=== PATIENT | male | born 1965 | race Hispanic/Latino ===

== ENCOUNTER 2023-11-28 07:36 | Inpatient (IN) | payer BC, SELFPAY ==
[2023-11-28] VITALS (55 sets, daily range): BP systolic 133–179; BP diastolic 67–99; PULSE 57–81; RESP 12–20; TEMP 36.3–36.8; O2SAT 95–100
--- NOTE | ~2023-11-28 | XR_ITS ---
EXAMINATION: XR chest 2V 11/28/2023 08:26 INDICATION: Chest pain PROCEDURE: PA view chest COMPARISON: No prior studies for comparison. FINDINGS: The lungs are clear. The cardiomediastinal silhouette is within normal limits. There are no pleural effusions. There is no pneumothorax suspected. IMPRESSION: 1: NO ACUTE CARDIOPULMONARY DISEASE. Reviewed, dictated and finalized at location B.
--- NOTE | ~2023-11-28 | CT_ITS ---
EXAMINATION: CTA chest abdomen DATE: 11/28/2023 09:29 INDICATION: Chest pain radiating to the back. TECHNIQUE: Computed tomographic angiography (CTA) of the chest and abdomen was performed without and with 100 mL Omnipaque-350 intravenous contrast. Volume-rendered 3D-reconstructions of the aorta and l arge arteries were constructed by the technologist on a separate workstation. Automated exposure cont rol and iterative reconstruction technique were employed. The dose-length product was 513.12 mGy-cm. COMPARISON: None FINDINGS: Chest: Mild dependent atelectasis in both lungs. No pneumonia, pulmonary edema, pleural effusion or pneumoth orax. Heart size is normal. Mild scattered atherosclerotic coronary artery calcification. No pericard ial effusion. Thoracic aorta is normal in caliber with no dissection. No pathologically enlarged thor acic lymphadenopathy. Mild thoracic spondylosis. Abdomen: Nodular liver surface consistent with cirrhosis. Gallbladder, spleen, pancreas and bilateral adrenal glands are normal. Bilateral renal cysts the larger on the right measuring 2.5 cm. There are few dive rticula along the visualized descending colon without adjacent comparison to suggest diverticulitis. No bowel obstruction. There is small amount of scattered nonhemodynamically significant calcified ath erosclerosis of the normal caliber abdominal aorta and many of the other arteries. No pathologically enlarged abdominal lymphadenopathy. Chronic L1 compression fracture with mild right anterior vertebra l body height loss. IMPRESSION: 1. Normal caliber aorta with no dissection. No acute cardiopulmonary disease or acute intra-abdominal process. Reviewed, dictated and finalized at location A.
--- NOTE | 2023-11-28 07:40 | ED.CHESTPAIN ---
HPI - Chest Pain General Chief Complaint: Chest Pain Stated Complaint: stemi Time Seen by Provider: 11/28/23 07:40 Source: patient, family and EMS Mode of arrival: EMS Limitations: language barrier (Surinamese as second language but good comprehension of and ability to speak Surinamese) History of Present Illness HPI narrative: Patient presents as a STEMI activation from the field based on 12-lead findings for EMS. They administerd 324 aspirin. Patient started having acute chest pain this morning approximately 30 minutes prior to calling EMS. This has never happened before. Lorenzana not follow with a cardioogist. Pain is in the center of his chest and rates to back. He feels subjectively like his whole body has been swollen lately. States he recenty had the flu yesterday with a cough and runny nose. Risk factors: HTN - Yes (didn't take meds this morning, unclear if compliant at baseline) HLD - Yes Cardiac Hx - No Family history - Yes, father DM - No but prediabetes Non smoker Related Data Home Medications Medication Instructions Recorded Confirmed losartan 50 mg tablet 50 mg PO DAILY 11/28/23 11/28/23 Allergies Allergy/AdvReac Type Severity Reaction Status Date / Time No Known Allergies Allergy Verified 11/28/23 07:40 [facility] Past Medical History Medical History HLD (hyperlipidemia) Hypertension Family History Family History Father Acute myocardial infarction <65yo Social History Social History (Updated 11/28/23 @ 23:15 by Deirde Arredondo MD) Social History: Surinamese as second language Smoking status: Never smoker Alcohol intake: former Substance use: never Substance use type: does not use Do You Feel Safe in your Home?: Yes Lack of Transportation: No Lack of Food: Never True Current Housing: I Have Housing Concerned About Future Housing: No Difficulty Paying Gas/Electric Bills: No Difficulty Paying for Meds: No Currently Unemployed: No Education: High School Diploma/GED Difficulty w/ Childcare or Family Care: No Spiritual care concerns: No Exam Narrative: GENERAL: Well-appearing, well-nourished, and in no acute distress. Appears younger than stated age HEAD: Normocephalic, atraumatic. EYES: Non injected, non icteric ENT: Nares clear, no rhinorrhea or epistaxis. NECK: Supple. CHEST: Speaking in full sentences. No respiratory distress. Lungs clear to auscultation bilaterally. HEART: Regular rate and rhythm. No pulse deficit in radials bilaterally. ABDOMEN: Soft, nondistended. EXTREMITIES: Normal range of motion. No lower extremity edema. SKIN: Warm, dry, no rash. NEURO: No focal deficits. Alert and oriented x3. PSYCH: Normal mood and affect. Course Vital Signs Vital signs: Vital Signs Temperature 97.3 F L 11/28/23 07:33 Pulse Rate 66 11/28/23 07:33 Respiratory Rate 19 11/28/23 07:33 Blood Pressure 153/93 H 11/28/23 07:33 Pulse Oximetry 100 11/28/23 07:33 Oxygen Delivery Room Air 11/28/23 07:33 Temperature 98.3 F 11/28/23 20:00 Pulse Rate 72 11/28/23 22:00 Respiratory Rate 18 11/28/23 21:30 Blood Pressure 156/87 H 11/28/23 21:00 Pulse Oximetry 95 11/28/23 21:30 Oxygen Delivery Room Air 11/28/23 21:30 MDM - Chest Pain MDM Narrative Medical decision making narrative: 58 yo male presents with acute onset chest pain. EKG from EMS did show some questionable elevations in inferior leads 2, 3, and AVF as well as possible depressions in V2 through V4 thus they activated STEMI call from the field. EKG obtained immediately while in the emergency department is not suspicious for STEMI and is otherwise relatively benign especially compared to EKG from the field. Discussed with on-call ventilation worker Dr. Chaves who concurs. STEMI activation is canceled. Will continue to proceed with wo
--- NOTE | 2023-11-28 07:42 | ECG_ITS ---
Test Date: 2023-11-28 07:37:09 Measurements Intervals [place] Rate: 69 P: 40 WI: 180 QRS: 48 QRSD: 87 T: 64 QT: 395 QTc: 423 Interpretive Statements SINUS RHYTHM WITH OCCASIONAL VENTRICULAR PREMATURE COMPLEXES No previous ECG available for comparison Electronically Signed On 11-28-2023 13:41:27 CDT by Fabien Chaves M.D.
[2023-11-28 07:55] LABS: Basophils Absolute Auto 0.1 K/mm3 (0.0-0.1); Basophils Percent Auto 0.9 % (0.2-1.2); Eosinophils Absolute Auto 0.4 K/mm3 (0-0.3); Eosinophils Percent Auto 5.2 % (0-4.4); Hematocrit 45.7 % (42.0-52.0); Hemoglobin 15.7 g/dL (14.0-18.0); Immature Granulocyte Absolute 0.01 K/mm3 (0.00-0.031); Immature Granulocyte Percent A 0.1 % (0-0.5); Lymphocytes Absolute Auto 3.49 K/mm3 (0.9-3.2); Lymphocytes Percent Auto 42.5 % (18.3-44.2); Mean Corpuscular HGB Conc 34.4 g/dl (32-36); Mean Corpuscular Hemoglobin 30.8 pg (26-34); Mean Corpuscular Volume 89.6 fl (80-100); Mean Platelet Volume 10.8 fl (7.4-10.4); Neutrophils Absolute Auto 3.2 K/mm3 (1.3-6.7); Neutrophils Percent Auto 39.3 % (45.5-73.1); Platelet Count Result 226 k/mm3 (150-375); Red Cell Distribution Width 13.6 % (11.5-14.5); White Blood Count 8.2 K/mm3 (4.5-10.0)
[2023-11-28] MEDS: MORPHINE SULFATE (*CRX) 4 MG/ML INJ IV PUSH (08:01)
[2023-11-28] MEDS: ONDANSETRON INJ 4 MG/2 ML VIAL IV PUSH (08:01)
[2023-11-28 08:22] LABS: Alanine Aminotransferase 38 U/L (6-50); Albumin Level 4.5 g/dL (3.5-5.1); Alkaline Phosphatase 62 U/L (38-126); Anion Gap 11 mmol/L (4-12); Aspartate Amino Transferase 35 U/L (17-59); Bilirubin,Total 0.7 mg/dL (0.2-1.3); Blood Urea Nitrogen 22 mg/dL (9-20); Calcium 9.9 mg/dL (8.4-10.2); Carbon Dioxide 20 mmol/L (22-30); Chloride 107 mmol/L (98-107); Estimated CRCL calculation 69 ml/min; Estimated Glomerular Filt Rate > 60; Glucose 137 mg/dL (65-110); Lipase 138 U/L (23-300); Potassium 3.8 mmol/L (3.4-5.0); Sodium 138 mmol/L (137-145)
[2023-11-28 08:27] LABS: INR 1.1; Prothrombin Time 14.2 Seconds (11.1-14.7)
[2023-11-28 08:28] LABS: Influenza A QL RT-PCR Negative (Negative); Influenza B QL RT-PCR Negative (Negative); RSV RNA, RT-PCR Negative (Negative); SARS-CoV-2 RNA PCR Negative (Negative)
[2023-11-28 08:28] LABS: Partial Thromboplastin Time 23.8 Seconds (22.3-36.8)
[2023-11-28 08:33] LABS: Troponin I < 0.012 ng/mL (0.000-0.034)
[2023-11-28 08:35] LABS: D Dimer 0.44 ug/mL (<0.48)
--- NOTE | 2023-11-28 10:40 | ECG_ITS ---
Test Date: 2023-11-28 11:05:49 Measurements Intervals [place] Rate: 60 P: 40 MT: 188 QRS: 27 QRSD: 84 T: 51 QT: 394 QTc: 395 Interpretive Statements SINUS RHYTHM Compared to ECG 11/28/2023 07:37:09 NO SIGNIFICANT CHANGES Electronically Signed On 11-28-2023 13:44:59 CDT by Fabien Chaves M.D.
[2023-11-28 11:29] LABS: Troponin I 0.393 ng/mL (0.000-0.034)
[2023-11-28 12:14] LABS: Cholesterol 233 mg/dL (0-200); HDL Direct 33 mg/dL; Triglycerides 150 mg/dL (<150)
[2023-11-28] MEDS: HEPARIN SODIUM 5,000 UNITS/ML VIAL 4000 UNITS IV PUSH (12:17)
[2023-11-28 12:18] LABS: Hemoglobin A1C 5.7 % (<5.7)
[2023-11-28] MEDS: HEPARIN SOD/D5W 100 UNITS/ML 25,000 UNITS/250 ML BAG 9 UNITS IV CONT (12:23)
[2023-11-28 12:25] LABS: LDL Cholesterol Direct 151 mg/dL
--- NOTE | 2023-11-28 12:31 | PM.CNCAR ---
Assessment and Plan Assessment and plan (1) Non-ST elevation MA (NSTEMI): Code(s): I21.4 - Non-ST elevation (NSTEMI) myocardial infarction Status: Acute Assessment and Plan: Recommend cardiac catheterization. Discussed procedure with the patient, including indication for the procedure, procedure details, risks vs benefits, alternative management options. Patient agreeable to cath. Will plan for cardiac catheterization later today. Further recommendations and plan pending results of cardiac catheterization. Continue Heparin drip in the meantime. Start ASA 81mg once daily, high intensity statin. Transthoracic echocardiogram ordered. (2) Hypertension: Code(s): I10 - Essential (primary) hypertension Status: Acute Assessment and Plan: Blood pressure elevated, as high as 179/88mmHg upon presentation. Will need to reconcile home medications and adjust antihypertensive regimen as appropriately. (3) Hypercholesterolemia: Code(s): E78.00 - Pure hypercholesterolemia, unspecified Status: Acute Assessment and Plan: LDL is 151. Start high intensity statin. (4) Diabetes mellitus: Code(s): E11.9 - Type 2 diabetes mellitus without complications Status: Acute Assessment and Plan: Hgb A1c is 5.7. Management as per primary team. (5) Cirrhosis: Code(s): K74.60 - Unspecified cirrhosis of liver Status: Acute Assessment and Plan: Management as per primary team. History of Present Illness History of Present Illness Consult date/time: 11/28/23 12:31 Requesting physician: Deidre Arredondo MD Consult reason: chest pain Reason For Visit: nstemi with pos troponin #2 and heart score 4 Narrative: This is a 58 year old male with cirrhosis, hypertension, hyperlipidemia, diabetes mellitus who had sudden onset of left sided chest pain this morning around 7AM. No prior cardiac history or episodes of chest pain. Patient reports that he had flu-like symptoms yesterday. EKG by EMS showed possible early ST elevations in the inferior leads with ST depressions in V1-V4. STEMI was activated by EMS. EKG upon immediate arrival to the ED showed normal sinus rhythm without ST elevations or ischemic changes. STEMI alert canceled. He was given Morphine in the ED, which resolved his chest pain, and he remains chest pain free since then. Initial troponin negative. Second troponin however was positive at 0.393. Repeat EKG with sinus rhythm, normal ECG without any ischemic changes. Chest and abdomen CTA shows normal aorta with no evidence of dissection. No other acute findings. Review of Systems Review of Systems: All systems reviewed & are unremarkable except as noted in HPI and below (HPI) Meds Home Medications and Allergies Allergies Allergy/AdvReac Type Severity Reaction Status Date / Time No Known Allergies Allergy Verified 11/28/23 07:40 Vital Signs Vital Signs - 24 hr 11/28/23 07:33 11/28/23 07:41 11/28/23 08:09 Temperature 36.3 C L Pulse Rate 66 65 Respiratory Rate 19 15 Blood Pressure 153/93 H 179/88 H Pulse Oximetry 100 100 100 Oxygen Delivery Room Air Room Air 11/28/23 08:48 11/28/23 09:53 Temperature Pulse Rate 64 60 Respiratory Rate 18 14 Blood Pressure 158/85 H 150/91 H Pulse Oximetry 99 100 Oxygen Delivery Exam Const: General: comfortable and no acute distress HENMT: Mouth: Yes moist mucous membranes Eyes: General: appearance normal, both eyes and all related structures Sclera: sclerae normal Neck: Neck: supple Resp: Effort & Inspection: normal respiratory effort Auscultation: clear to auscultation bilaterally Cardio: Rate: regular rate Rhythm: regular rhythm Heart sounds: no murmurs Skin: General skin exam: normal color Neuro: Speech: normal speech Psych: Mental Status: mental status grossly normal Affect: normal affect Results Labs and Meds 11/28/23 07:49 11/28/23 08:03
--- NOTE | 2023-11-28 12:36 | PC.NURSE ---
This RN spoke with DIGITAL PRODUCT SPECIALIST @ 0819 who stated this pt will go to school laboratory technician first then will transfer to IMU room 200.
--- NOTE | 2023-11-28 12:49 | WPDMODSED ---
Moderate Sedation Note-Pt Data Patient Data Diagnosis: NSTEMI Present Complaint: NSTEMI Procedure to be performed/Plan: Coronary angiography, left heart cath, +/- PCI Allergies Allergy/AdvReac Type Severity Reaction Status Date / Time No Known Allergies Allergy Verified 11/28/23 07:40 Current Medications: Active Medications Acetaminophen (Acetaminophen 325 Mg Tablet) 650 mg PO Q4H PRN PRN Reason: Mild Pain (1-3) or Fever Aspirin (Aspirin 81 Mg Enteric Tablet) 81 mg PO QAM BRENDA Atorvastatin Calcium (Atorvastatin 40 Mg Tablet) 80 mg PO DAILY BRENDA Heparin Sodium (Porcine) (Heparin Sodium 5,000 Units/Ml Vial) 4,000 units IV PUSH PRN PRN PRN Reason: aPTT less than 55 seconds Heparin Sodium (Porcine) (Heparin Sodium 5,000 Units/Ml Vial) 3,000 units IV PUSH PRN PRN PRN Reason: aPTT 55 - 70 seconds Heparin Sodium/Dextrose (Heparin Sodium/D5w 100 Units/Ml) 25,000 units in 250 mls @ 9 mls/hr IV CONT .Q24H BRENDA; Protocol Last Admin: 11/28/23 12:23 Dose: 900 units/hr, 9 mls/hr Morphine Sulfate (Morphine Sulfate (*Crx) 4 Mg/Ml Inj) 4 mg IV PUSH Q2H PRN PRN Reason: Pain Rated 7-10 Ondansetron HCl (Ondansetron Inj 4 Mg/2 Ml Vial) 4 mg IV PUSH Q4H PRN PRN Reason: Nausea Perflutren Lipid Microsphere (Perflutren Lipid Microspheres 1.5 Ml Vial Diluted To 10 Ml Total Volume) 0 ml IV PUSH ONCE PRN; Protocol PRN Reason: adequate visualization Stop: 12/01/23 12:43 Sedation/Anesthesia: No previous sedation/anesthesia problems (including family history). Mod Sed Physical Exam Physical Exam Pre Procedural Exam: Normal: Appearance, Lungs, Heart Rate, Heart Rhythm, Neuro Exam, Extremities and Skin Hours since solid foods: 12 Hours since liquid intake: 8 Mallampati Classification: class III Internal Medicine - PN: Obj Da Vital Signs Vital Signs: Vital Signs - 24 hr 11/28/23 07:33 11/28/23 07:41 11/28/23 08:09 Temperature 36.3 C L Pulse Rate 66 65 Respiratory Rate 19 15 Blood Pressure 153/93 H 179/88 H Pulse Oximetry 100 100 100 Oxygen Delivery Room Air Room Air 11/28/23 08:48 11/28/23 09:53 11/28/23 07:50 Temperature Pulse Rate 64 60 65 Respiratory Rate 18 14 16 Blood Pressure 158/85 H 150/91 H Pulse Oximetry 99 100 100 Oxygen Delivery 11/28/23 08:00 11/28/23 08:01 11/28/23 08:15 Temperature Pulse Rate 64 57 L 66 Respiratory Rate 18 18 19 Blood Pressure 179/88 H Pulse Oximetry 100 100 100 Oxygen Delivery 11/28/23 08:32 11/28/23 08:45 11/28/23 08:46 Temperature Pulse Rate 63 63 65 Respiratory Rate 12 14 16 Blood Pressure 158/85 H Pulse Oximetry 100 99 98 Oxygen Delivery 11/28/23 09:00 11/28/23 09:01 11/28/23 09:39 Temperature Pulse Rate 66 63 64 Respiratory Rate 16 13 13 Blood Pressure 145/94 H Pulse Oximetry 100 99 100 Oxygen Delivery 11/28/23 09:45 11/28/23 09:46 11/28/23 10:15 Temperature Pulse Rate 70 63 64 Respiratory Rate 17 19 14 Blood Pressure 150/91 H Pulse Oximetry 100 99 100 Oxygen Delivery 11/28/23 10:16 11/28/23 10:45 11/28/23 10:46 Temperature Pulse Rate 61 62 62 Respiratory Rate 17 16 13 Blood Pressure 151/89 H 133/82 Pulse Oximetry 100 97 100 Oxygen Delivery 11/28/23 11:01 11/28/23 11:25 11/28/23 11:30 Temperature Pulse Rate 64 62 73 Respiratory Rate 14 15 20 Blood Pressure 146/86 H Pulse Oximetry 100 98 99 Oxygen Delivery 11/28/23 11:57 11/28/23 12:01 11/28/23 12:15 Temperature Pulse Rate 65 69 75 Respiratory Rate 15 16 14 Blood Pressure 150/75 H Pulse Oximetry 99 98 99 Oxygen Delivery 11/28/23 12:16 11/28/23 12:30 Temperature Pulse Rate 67 68 Respiratory Rate 12 12 Blood Pressure 143/85 H Pulse Oximetry 99 98 Oxygen Delivery Meds/Results Medications: Active Medications Generic Name Dose Route Start Last Admin Trade Name Freq PRN Reason Stop Dose Admin Acetaminophen 650 mg 11/28/23 11:46 Acetaminophen 325 Mg Tablet PO Q4H PRN
--- NOTE | 2023-11-28 12:50 | WPDCARDPROC ---
Cardiac Cath Procedure Note Date of procedure:: 11/28/23 Performing physician:: CATHETERIZATION LABORATORY REPORT Procedure Date: 11/28/2023 Blueprint Tracer: Fabien Chaves M.D., [facility]? Referring Physician: Fabien Chaves M.D. ? Anesthesia: Versed and Fentanyl were ordered and given in my presence at 14:08, procedure ended at 14:57. Supervision of nurse monitored moderate sedation with Versed and Fentanyl was provided for 49 minutes. Total of Versed 2mg and Fentanyl 75mcg were administered by the Icu Specialist RN Torres Gibbs. Pre-op Diagnosis: NSTEMI Post-op Diagnosis: 1. Significant obstructive mid RCA stenosis s/p successful PCI with ESME x 1 in the mid-distal RCA with a 3.5mm x 35mm Orsiro ESME. 2. Significant obstructive mid LAD 80% stenosis. Non culprit lesion. Will plan for outpatient staged PCI. 3. Moderate LCX ostial disease. Borderline 70% disease in the mid portion of the LCX. Will plan for medical management of LCX disease at this time. Procedure(s): 1. Moderate sedation 2. Ultrasound-guided access of the right radial artery 3. Coronary angiography 4. IVUS of the RCA 5. PCI of the RCA with ESME x 1 in the mid-distal RCA with a 3.5mm x 35mm Orsiro ESME Access Site: Right radial artery Brief History and Clinical Indications: Patient is a 58 year old male who is referred for [facility] for NSTEMI. All risks, benefits and alternatives to left heart catheterization with or without percutaneous coronary intervention was discussed at length with the patient. Risk of complications including but not limited to bleeding, infection, arrhythmia, stroke, worsening kidney function, blood loss, groin hematoma, limb loss, emergency coronary artery bypass grafting, and even were discussed with the patient and all questions were answered. The patient understood and wished to proceed. Time out called, patient name, date of , medical record number, allergies, procedure performed, identify Blueprint Tracer, patient and staff member concurred with accurate data, procedure carried on. Findings: LEFT HEART CATHETERIZATION FINDINGS: 1. Left main: The left main coronary artery is widely patent without any significant obstructive disease. 2. Left anterior descending: The mid LAD has an 80% stenosis. 3. Left circumflex: The left circumflex artery has moderate ostial disease. Borderline 70% disease in the mid portion of the LCX. 4. Right coronary artery: The RCA is the dominant vessel. The proximal RCA has luminal irregularities. The mid RCA has an 80% stenosis. The distal RCA has moderate disease. Description of Procedure and PCI: Informed consent signed and placed in the chart. Patient transferred to labor trainer room. Prepped and draped in usual sterile fashion. 2% lidocaine injected subcutaneously in right wrist area. 22-gauge venipuncture catheter used to access the right radial artery under ultrasound guidance. 6-FR slender sheath placed in right radial artery. Nitroglycerine and Verapamil were given intraarterial through the sheath. Versacore wire advanced under fluoroscopy 5F Tig 4 diagnostic catheter engaged Left Main Coronary Artery. 5F Tig 4 diagnostic catheter engaged Right Coronary Artery Multiple orthogonal angiogram obtained and reviewed. Given the EMS EKG with possible early ST elevations in the inferior leads with ST depressions in V1-V4, we decided to proceed with PCI of the RCA, which is likely the culprit lesion. Angiomax was used for anticoagulation. 6F FR4 guide catheter was used to intubate the RCA. 0.014 [place] coronary wire was passed in to the distal RCA. The lesion was pre-dilated with a 2.5 mm x 15 mm balloon inflated to high DARIO. IVUS was advanced to the distal RCA. Reference measurements were obtained. A 3.5 mm x 35 mm Hersiro ESME was successfully deployed into mid-distal RCA. The proximal portion of the stent was post-dilated with a 3.5 mm x 8 mm NC balloon inflated to high DARIO. Intracoronary NTG was a
--- NOTE | 2023-11-28 13:12 | PM.IMHP ---
H&P: HPI History of Present Illness Date/Time: 11/28/23 13:12 Chief Complaint: Chest pain Narrative: This is a 58-year-old male who presented to the ER with left-sided chest pain that started about 7:00 a.m.. He had been having flu-like symptoms since yesterday. EMS was called. EKG by EMS showed possible early ST-elevation in the inferior leads with ST depression in V1 to V4. STEMI was activated. EKG upon arrival to the ED showed normal sinus rhythm without ST elevations or ischemic changes. STEMI alert was canceled. Chest pain resolved with IV morphine in the ED. Initial troponin was negative however the 2nd troponin came back positive at 0.393. Chest and abdomen CTA with normal aorta with no evidence of dissection. Patient is an admitted for further treatment for non STEMI. He underwent cardiac catheterization and had stent placement in RCA. Review of Systems Review of Systems: - CONSTITUTIONAL: Denies weight loss, fever and chills. - HEENT: Denies changes in vision and hearing - RESPIRATORY: Denies SOB and cough. - CV: Denies palpitations and reports CP. - GI: Denies abdominal pain, nausea, vomiting and diarrhea. - : Denies dysuria and urinary frequency. - MSK: Denies myalgia and joint pain. - SKIN: Denies rash and pruritus. - NEUROLOGICAL: Denies headache and syncope. - PSYCHIATRIC: Denies recent changes in mood. Denies anxiety and depression. Meds Home Medications and Allergies Home Medications Medication Instructions Recorded Confirmed Type aspirin 81 mg tablet,delayed 81 mg PO QAM #90 tabs 11/28/23 Rx release atorvastatin 80 mg tablet 80 mg PO DAILY #90 tabs 11/28/23 Rx ticagrelor 90 mg tablet (Brilinta) 90 mg PO Q12HR #180 tabs 11/28/23 Rx Allergies Allergy/AdvReac Type Severity Reaction Status Date / Time No Known Allergies Allergy Verified 11/28/23 07:40 Vital Signs Vital Signs - 24 hr 11/28/23 07:33 11/28/23 07:41 11/28/23 08:09 Temperature 97.3 F L Pulse Rate 66 65 Respiratory Rate 19 15 Blood Pressure 153/93 H 179/88 H Pulse Oximetry 100 100 100 Oxygen Delivery Room Air Room Air 11/28/23 08:48 11/28/23 09:53 11/28/23 07:50 Temperature Pulse Rate 64 60 65 Respiratory Rate 18 14 16 Blood Pressure 158/85 H 150/91 H Pulse Oximetry 99 100 100 Oxygen Delivery 11/28/23 08:00 11/28/23 08:01 11/28/23 08:15 Temperature Pulse Rate 64 57 L 66 Respiratory Rate 18 18 19 Blood Pressure 179/88 H Pulse Oximetry 100 100 100 Oxygen Delivery 11/28/23 08:32 11/28/23 08:45 11/28/23 08:46 Temperature Pulse Rate 63 63 65 Respiratory Rate 12 14 16 Blood Pressure 158/85 H Pulse Oximetry 100 99 98 Oxygen Delivery 11/28/23 09:00 11/28/23 09:01 11/28/23 09:39 Temperature Pulse Rate 66 63 64 Respiratory Rate 16 13 13 Blood Pressure 145/94 H Pulse Oximetry 100 99 100 Oxygen Delivery 11/28/23 09:45 11/28/23 09:46 11/28/23 10:15 Temperature Pulse Rate 70 63 64 Respiratory Rate 17 19 14 Blood Pressure 150/91 H Pulse Oximetry 100 99 100 Oxygen Delivery 11/28/23 10:16 11/28/23 10:45 11/28/23 10:46 Temperature Pulse Rate 61 62 62 Respiratory Rate 17 16 13 Blood Pressure 151/89 H 133/82 Pulse Oximetry 100 97 100 Oxygen Delivery 11/28/23 11:01 11/28/23 11:25 11/28/23 11:30 Temperature Pulse Rate 64 62 73 Respiratory Rate 14 15 20 Blood Pressure 146/86 H Pulse Oximetry 100 98 99 Oxygen Delivery 11/28/23 11:57 11/28/23 12:01 11/28/23 12:15 Temperature Pulse Rate 65 69 75 Respiratory Rate 15 16 14 Blood Pressure 150/75 H Pulse Oximetry 99 98 99 Oxygen Delivery 11/28/23 12:16 11/28/23 12:30 Temperature Pulse Rate 67 68 Respiratory Rate 12 12 Blood Pressure 143/85 H Pulse Oximetry 99 98 Oxygen Delivery Exam Narrative: GENERAL: Well-appearing, well-nourished, and in no acute distress. HEAD: Normocephalic, atraumatic. EYES: Non inject
--- NOTE | 2023-11-28 13:39 | PC.NURSE ---
left with laboratory engineer staff at this time
--- NOTE | 2023-11-28 16:00 | SUR.PHASEII ---
ANGIOMAX GTT TURNED OFF AT 1600, 1 HOUR AFTER COMPLETION OF LHC W/ PCI. PER TR BAND PROTOCOL, CAN BEGIN RELEASING AIR FROM BAND AFTER ANGIOMAX OFF 2 HOURS AT 1800.
[2023-11-28 16:21] LABS: Basophils Percent Auto 0.5 % (0.2-1.2); Eosinophils Absolute Auto 0.1 K/mm3 (0-0.3); Eosinophils Percent Auto 1.9 % (0-4.4); Hematocrit 46.4 % (42.0-52.0); Hemoglobin 15.5 g/dL (14.0-18.0); Immature Granulocyte Absolute 0.02 K/mm3 (0.00-0.031); Immature Granulocyte Percent A 0.4 % (0-0.5); Lymphocytes Absolute Auto 1.31 K/mm3 (0.9-3.2); Lymphocytes Percent Auto 23.2 % (18.3-44.2); Mean Corpuscular HGB Conc 33.4 g/dl (32-36); Mean Corpuscular Hemoglobin 30.3 pg (26-34); Mean Corpuscular Volume 90.8 fl (80-100); Mean Platelet Volume 10.4 fl (7.4-10.4); Monocytes Absolute Auto 0.6 K/mm3 (0.1-0.6); Monocytes Percent Auto 9.9 % (2.6-8.5); Neutrophils Absolute Auto 3.6 K/mm3 (1.3-6.7); Neutrophils Percent Auto 64.1 % (45.5-73.1); Platelet Count Result 192 k/mm3 (150-375); Red Blood Count 5.11 M/mm3 (4.6-6.20); Red Cell Distribution Width 13.7 % (11.5-14.5); White Blood Count 5.7 K/mm3 (4.5-10.0)
[2023-11-28 16:35] LABS: INR 3.8
[2023-11-28 16:37] LABS: Partial Thromboplastin Time 140.4 Seconds (22.3-36.8)
[2023-11-28] MEDS: ASPIRIN 81 MG ENTERIC TABLET PO (16:39)
[2023-11-28] MEDS: ATORVASTATIN 40 MG TABLET 80 MG PO (16:39)
[2023-11-28] MEDS: LOSARTAN POTASSIUM 25 MG TABLET PO (16:40)
[2023-11-28] MEDS: METOPROLOL SUCCINATE EXT REL 25 MG TABCR PO (16:40)
[2023-11-28] MEDS: SODIUM CHLORIDE 0.9% IV 1,000 ML 125 ML IV CONT (16:40)
[2023-11-28 16:48] LABS: Troponin I 0.868 ng/mL (0.000-0.034)
--- NOTE | 2023-11-28 17:15 | SUR.PHASEII ---
PT. MOVED FROM HYDROCHLORIC ACID OPERATOR 1 TO ICU 1 VIA STRETCHER ON PORTABLE MONITOR AT 1715 FOR COMPLETION OF PHASE II RECOVERY AFTER LHC W/ PCI. AFTER PHASE II RECOVERY COMPLETED IN ICU 1, PT. WILL BE RETURNED TO IMU 200 VIA BED ON TELE.
--- NOTE | 2023-11-28 18:30 | SUR.PHASEII ---
PER PT'S REQUEST, STENT CARD GIVEN TO PT'S GIRLFRIEND. COPY OF STENT CARD PLACED ON CHART.
--- NOTE | 2023-11-28 20:01 | PC.NURSE ---
TR band was removed at 1999. No bleeding at site, covered with a tegaderm. Hematoma area marked by previous RN. Full sensation, no numbness or tingling, can wiggle fingers. Normal radial pulse. Patient's right arm is on a arm board w/khanh wraps to hold in place. No c/o of pain or CP at this time. Patient is currently in ICU for observation of removal of TR band for 1 hour - will be transferred to IMU at 2100.
[2023-11-28] MEDS: TICAGRELOR 90 MG TABLET PO (21:10)
--- NOTE | 2023-11-28 21:11 | PC.NURSE ---
This patient, Harjit Colon, was received from [Icu ] on 11/28/23 at 2111. Patient/family oriented to unit policies and routines
--- NOTE | 2023-11-28 21:12 | PC.NURSE ---
pt. was in ICU following post cardiac cath. Transferred to imu room 200 at 2112. Report given by Sera Yeung rn.
--- NOTE | 2023-11-28 21:39 | ADMGEN ---
This patient, Harjit Colon, was admitted to IMU Room 200-01. Patient/family oriented to hospital policies and general routines including ID bracelet, bed and alarms, visiting hours, pain management, procedures, bathroom and other care routines, personal items, smoking policy, room service/diet, and visiting hours. Information on how to activate the Rapid Response Team has been discussed. Patient/Family are encouraged to report perceived risks to care and to ask questions if they do not understand what they are told or what they should do.
[2023-11-28] MEDS: ACETAMINOPHEN 325 MG TABLET 650 MG PO (21:58)
[2023-11-29] VITALS (11 sets, daily range): BP systolic 144–154; BP diastolic 76–87; PULSE 60–90; RESP 14–18; TEMP 36.6–37; O2SAT 97–99
--- NOTE | 2023-11-29 | ECHO_ITS ---
Patient Info Name: Harjit Colon Age: 58 years : 1965 Gender: Male Ht: 68 in Wt: 190 lbs BSA: 2.05 m2 HR: 68 bpm BP: 143 / 78 mmHg Heart Rhythm: Sinus Rhythm Technical Quality: Poor Exam Date: 11/29/2023 8:02 AM Exam Location: Echo Lab Patient Status: Inpatient Admit Date: 11/28/2023 Staff Ordering Physician: Fabien Chaves MD ([email or web address]) District Supervisor: Denise Keys RDCS Attending Provider: David Castro MD Referring Physician: Anastacio TATUM; Exam Type: CA echo dop color flow w con Study Info Indications - chest pain Complete two-dimensional, color flow and Doppler transthoracic echocardiogram is performed with contrast to opacify the left ventricle and to improve the deliniation of the left ventricle endocardial borders. Reason for Poor Study: poor echocardiographic windows Summary 1. Definity contrast utilized to improve visualization. 2. Normal left ventricular size and systolic function without any ischemic wall motion abnormalities and normal ejection fraction. 3. Small amount of aortic and mitral regurgitation. Left Ventricle Left ventricular chamber dimension is normal. Left ventricular systolic function is normal, estimated at 65-70%. The left ventricular diastolic function is normal. Right Ventricle Right ventricular chamber dimension is normal. Left Atria Left atrial chamber dimension is normal. Right Atria Right atrial chamber dimension is normal. Aortic Valve The aortic valve is trileaflet. There is mild aortic valve sclerosis. There is mild aortic valve regurgitation. Pulmonic Valve The pulmonic valve is not well visualized. Mitral Valve The mitral valve has normal leaflets. There is trace mitral valve regurgitation. Tricuspid Valve The tricuspid valve leaflets are normal. Pericardium/Pleural The pericardium appears normal. Aorta The aortic root size at the sinus of Valsalva is normal. Left Ventricular Outflow Tract Name Value Normal LVOT 2D LVOT Diameter 2.12 cm LVOT Doppler LVOT Peak Gradient 5 mmHg LVOT Mean Gradient 3 mmHg LVOT VTI 24.14 cm LVOT VTI/AV VTI Ratio 0.85 LVOT Stroke Volume 85.44 ml LVOT CO 5.74 l/min LVOT CI 2.80 L/min/m2 Mitral Valve Name Value Normal MV Doppler MV Decel Shannon 424.28 cm/s2 MV PHT 0 s MV Area (PHT) 3.72 cm2 4.00-5.00 MV Diastolic Function MV E Peak Velocity 86.46 cm/s MV A Peak Velocity 86.86 cm/s MV E/A 1.00 MV Decel Time 0 s MV Annular TDI ---
[2023-11-29 05:25] LABS: Basophils Percent Auto 0.7 % (0.2-1.2); Eosinophils Absolute Auto 0.4 K/mm3 (0-0.3); Eosinophils Percent Auto 6.9 % (0-4.4); Hematocrit 45.1 % (42.0-52.0); Hemoglobin 14.7 g/dL (14.0-18.0); Immature Granulocyte Absolute 0.02 K/mm3 (0.00-0.031); Immature Granulocyte Percent A 0.3 % (0-0.5); Lymphocytes Absolute Auto 1.58 K/mm3 (0.9-3.2); Lymphocytes Percent Auto 27.2 % (18.3-44.2); Mean Corpuscular HGB Conc 32.6 g/dl (32-36); Mean Corpuscular Hemoglobin 29.7 pg (26-34); Mean Corpuscular Volume 91.1 fl (80-100); Mean Platelet Volume 10.8 fl (7.4-10.4); Monocytes Absolute Auto 0.6 K/mm3 (0.1-0.6); Monocytes Percent Auto 10.3 % (2.6-8.5); Neutrophils Absolute Auto 3.2 K/mm3 (1.3-6.7); Neutrophils Percent Auto 54.6 % (45.5-73.1); Platelet Count Result 191 k/mm3 (150-375); Red Blood Count 4.95 M/mm3 (4.6-6.20); White Blood Count 5.8 K/mm3 (4.5-10.0)
[2023-11-29] MEDS: PERFLUTREN LIPID MICROSPHERES 1.5 ML VIAL DILUTED TO 10 ML TOTAL VOLUME IV PUSH (08:35)
[2023-11-29] MEDS: TICAGRELOR 90 MG TABLET PO (08:53)
[2023-11-29] MEDS: ASPIRIN 81 MG ENTERIC TABLET PO (08:53)
[2023-11-29] MEDS: METOPROLOL SUCCINATE EXT REL 25 MG TABCR PO (08:53)
[2023-11-29] MEDS: LOSARTAN POTASSIUM 25 MG TABLET PO (08:54)
[2023-11-29] MEDS: ACETAMINOPHEN 325 MG TABLET 650 MG PO (08:54)
[2023-11-29] MEDS: ATORVASTATIN 40 MG TABLET 80 MG PO (08:54)
--- NOTE | 2023-11-29 09:01 | IVDEFINITY ---
Prior to administration of IV Definity the patient was educated on the risks and benefits of the imaging enhancing agent including potential adverse side effects. The patient verbalized understanding. Allergies were verified. No exclusion criteria were identified and at least one of the following inclusion criteria were met: 1) physician request, 2) patient technically difficult to image (per the [place] [employer] guidelines of two or more segments not discernable within the apical view), or 3) questionable left ventricular function. ?
--- NOTE | 2023-11-29 11:13 | PM.PNCARD ---
Progress Note: A&P Assessment and Plan (1) Non-ST elevation [place] (NSTEMI): Code(s): I21.4 - Non-ST elevation (NSTEMI) myocardial infarction Status: Acute Plan 58-year-old man with newly diagnosed coronary disease presenting with non ST elevation [place] due to high-grade subtotal stenosis of the mid RCA this was successfully treated with emergent / urgent PCI by Dr. Chaves. Patient is stable for discharge today. He will be seen in the office in short interval follow-up and then scheduled for staged PCI of the LAD near future. stressed to the patient the importance of strict adherence to his medical therapy especially dual anti-platelet therapy for at least the next year. Justino Maya MD [facility] Subjective Date/time seen: Date of service:11/29/23 11:13 Interval history: Follow-up visit in this 58-year-old man with: Newly diagnosed coronary artery disease presenting with non ST elevation [place] and subtotal stenosis of the mid right coronary artery which was treated successfully yesterday with PCI by Dr. Chaves. Patient is asymptomatic this morning and feels well. Discussed with the patient at great length the importance of adherence to dual anti-platelet therapy as well as the fact that he was found to have significant stenosis in the LAD and the recommendation that that will need to be treated in a staged fashion. He did not seem to recall this at the time of this morning's Discussion. Exam Const: General: comfortable and no acute distress Other: No apparent distress healthy-appearing gentleman appears his stated age HENMT: Mouth: Yes moist mucous membranes Eyes: Sclera: sclerae normal Neck: Neck: supple and no JVD Resp: Effort & Inspection: normal respiratory effort Auscultation: clear to auscultation bilaterally Cardio: Rate: regular rate Rhythm: regular rhythm Other: no murmur no gallop Skin: General skin exam: normal color Neuro: Other: alert and oriented x3 Extrem: Other: no edema, good pulses right radial artery puncture site looks fine Objective Data Vital Signs Vital Signs: Vital Signs - 24 hr 11/28/23 11:25 11/28/23 11:30 11/28/23 11:57 Temperature Pulse Rate 62 73 65 Respiratory Rate 15 20 15 Blood Pressure Pulse Oximetry 98 99 99 Oxygen Delivery 11/28/23 12:01 11/28/23 12:15 11/28/23 12:16 Temperature Pulse Rate 69 75 67 Respiratory Rate 16 14 12 Blood Pressure 150/75 H 143/85 H Pulse Oximetry 98 99 99 Oxygen Delivery 11/28/23 12:30 11/28/23 13:26 11/28/23 16:40 Temperature Pulse Rate 68 71 75 Respiratory Rate 12 17 Blood Pressure 157/98 H Pulse Oximetry 98 98 Oxygen Delivery 11/28/23 15:20 11/28/23 15:30 11/28/23 15:45 Temperature 36.7 C Pulse Rate 68 62 65 Respiratory Rate 17 14 16 Blood Pressure 156/84 H 145/85 H 154/91 H Pulse Oximetry 97 99 99 Oxygen Delivery Room Air Room Air Room Air 11/28/23 16:00 11/28/23 16:15 11/28/23 16:30 Temperature Pulse Rate 69 71 69 Respiratory Rate 18 16 16 Blood Pressure 165/88 H 145/92 H 152/93 H Pulse Oximetry 99 99 100 Oxygen Delivery Room Air Room Air Room Air 11/28/23 16:45 11/28/23 17:00 11/28/23 17:30 Temperature Pulse Rate 63 69 66 Respiratory Rate 14 12 16 Blood Pressure 146/99 H 167/95 H 154/77 H Pulse Oximetry 99 100 98 Oxygen Delivery Room Air Room Air Room Air 11/28/23 17:45 11/28/23 18:00 11/28/23 18:15 Temperature Pulse Rate 68 76 75 Respiratory Rate 14 14 16 Blood Pressure 142/89 H 157/91 H 144/79 H Pulse Oximetry 98 96 97 Oxygen Delivery Room Air Room Air Room Air 11/28/23 18:30 11/28/23 18:45 11/28/23 19:00 Temperature Pulse Rate 78 77 78 Respiratory Rate 16 16 18 Blood Pressure 137/90 134/71 141/80 H Pulse Oximetry 96 95 95 Oxygen Delivery Room Air Room Air Room Air 11/28/23 19:15 11/28/23 19:30 11/28/23 19:45 Temperature Pulse Rate 81 80 77 Respiratory Rate 14 15 12 Blood Pres
--- NOTE | 2023-11-29 11:53 | PM.DS ---
DS: Admitting Diagnosis Discharge Date 11/29/2023 Admitting Diagnosis Chest pain DS: Discharge Diagnosis Discharge Diagnosis (1) Non-ST elevation [place] (NSTEMI): Code(s): I21.4 - Non-ST elevation (NSTEMI) myocardial infarction Status: Acute (2) Hypertension: Code(s): I10 - Essential (primary) hypertension Status: Acute (3) Diabetes mellitus: Code(s): E11.9 - Type 2 diabetes mellitus without complications Status: Acute (4) Cirrhosis: Code(s): K74.60 - Unspecified cirrhosis of liver Status: Acute (5) Hypercholesterolemia: Code(s): E78.00 - Pure hypercholesterolemia, unspecified Status: Acute DS: Summary Hospital Course Hospital Course: This is a 58-year-old male who presented to the ER with left-sided chest pain that started about 7:00 a.m.. He had been having flu-like symptoms since yesterday. EMS was called. EKG by EMS showed possible early ST-elevation in the inferior leads with ST depression in V1 to V4. STEMI was activated. EKG upon arrival to the ED showed normal sinus rhythm without ST elevations or ischemic changes. STEMI alert was canceled. Chest pain resolved with IV morphine in the ED. Initial troponin was negative however the 2nd troponin came back positive at 0.393. Chest and abdomen CTA with normal aorta with no evidence of dissection. Patient is an admitted for further treatment for non STEMI. Patient was started on heparin drip for non ST elevation [place]. Received aspirin EN route. Laboratory evaluation showed normal WBC hemoglobin 15.7 creatinine 1.1 normal chemistry panel. D-dimer was 0.44 influenza RSV COVID was negative. Lipase was normal. Patient underwent cardiac catheterization this afternoon. Cardiac catheterization showed mid LAD 80% stenosis LCX 70% borderline midportion of LCX RCA 80% stenosis. Patient had PCI of RCA with ESME x1 in mid distal RCA. Patient will be on DAPT for 1 year. Followed by aspirin indefinitely. He will be followed up as an outpatient for staged intervention to LAD Hypertension Hyperlipidemia Diabetes mellitus type 2 History of cirrhosis of liver well compensated currently. CT with nodular cirrhosis of liver noted Chronic L1 compression fracture as noted on CT DVT prophylaxis on heparin drip Code status full code Time Spent with Patient Time attestation: Total time spent providing and/or coordinating discharge services: 35 minutes Exam Narrative: GENERAL: Well-appearing, well-nourished, and in no acute distress. HEAD: Normocephalic, atraumatic. EYES: Non injected, non icteric ENT: Nares clear, no rhinorrhea or epistaxis. NECK: Supple. CHEST: Speaking in full sentences. No respiratory distress. HEART: Regular rate and rhythm. . ABDOMEN: Soft, nondistended. EXTREMITIES: Normal range of motion. No lower extremity edema. SKIN: Warm, dry, no rash. NEURO: No focal deficits. Alert and oriented x3. PSYCH: Normal mood and affect. DS: Data Data Completed and Pending Labs on day of discharge: Labs from last 24 hours 11/29/23 11/28/23 11/28/23 04:59 16:15 08:03 WBC 5.8 5.7 RBC 4.95 5.11 Hgb 14.7 15.5 Hct 45.1 46.4 MCV 91.1 90.8 MCH 29.7 30.3 MCHC 32.6 33.4 RDW 14.0 13.7 Plt Count 191 192 MPV 10.8 H 10.4 Immature Gran % (Auto) 0.3 0.4 Neut % (Auto) 54.6 64.1 Lymph % (Auto) 27.2 23.2 [place] % (Auto) 10.3 H 9.9 H Eos % (Auto) 6.9 H 1.9 Baso % (Auto) 0.7 0.5 Lymph # (Auto) 1.58 1.31 [place] # (Auto) 0.6 0.6 Eos # (Auto) 0.4 H 0.1 Baso # (Auto) 0.0 0.0 Abs Immat Gran (auto) 0.02 0.02 Absolute Neuts (auto) 3.2 3.6 Absolute Nucleated RBC 0.000 0.000 Nucleated RBC % 0.0 0.0 PT 38.0 H D INR 3.8 APTT 140.4 H Hemoglobin A1c 5.7 Troponin I 0.868 H* D Triglycerides 150 Cholesterol 233 H LDL Cholesterol Direct 151 HDL Direct 33 Procedures/Treatments: Cardiac Cath Procedure Note Date of
[2023-11-29 12:31] LABS: Prothrombin Time 13.8 Seconds (11.1-14.7)
== END 2023-11-29 15:37 | disposition home or self-care (01) | DRG 322 ==
LOC: ANHED 11:52 → ANHIMU 12:27
PROVIDERS: Internal Medicine; Admitting Provider Internal Medicine; Emergency Provider Student in an Organized Health Care Education/Training Program; Visit Provider Internal Medicine
PROC: 027034Z Dilation of Coronary Artery, One Artery with Drug-eluting Intraluminal Device, Percutaneous Approach (ICD-10-PCS; CPT 93454; principal; 2023-11-28 13:30)
PROC: 027034Z Dilation of Coronary Artery, One Artery with Drug-eluting Intraluminal Device, Percutaneous Approach (ICD-10-PCS; 2023-11-28 13:30)
PROC: 027034Z Dilation of Coronary Artery, One Artery with Drug-eluting Intraluminal Device, Percutaneous Approach (ICD-10-PCS; 2023-11-28 13:30)
DX: I21.4 Non-ST elevation (NSTEMI) myocardial infarction (principal); I10 Essential (primary) hypertension; E11.9 Type 2 diabetes mellitus without complications; E78.5 Hyperlipidemia, unspecified; K74.60 Unspecified cirrhosis of liver; Z20.822 Contact with and (suspected) exposure to COVID-19; Z79.82 Long term (current) use of aspirin
CPT/HCPCS: 36415; 71046; 71275; 74175; 80053; 80061; 83036; 83690; 84484; 85025; 85380; 85610; 85730; 87637; 92978; 93005; 93454; 96374; 96375; 99285; A9270; C1725; C1753; C1769; C1874; C1887; C1894; C8929; C9600; G0378; J0583; J1644; J2003; J2250; J2270; J2305; J2405; J3010; J7030; J7040; Q9957; Q9967